=== PATIENT | male | born 1985 | race African-American/Black ===

== ENCOUNTER 2020-02-07 22:58 | Emergency (ER) | payer OTHER ==
[~2020-02-07] VITALS: Ht 188 cm; Wt 81.7 kg
[2020-02-07 23:45] LABS: ABSOLUTE NEUTROPHILS 3.4 thou/uL (1.4-8.2); BASOPHILS 0.6 % (0.0-2.0); EOSINOPHILS 1.1 % (0.0-3.0); HEMATOCRIT 48.3 % (42.0-52.0); LYMPHOCYTES 42.6 % (24.0-44.0); MCH 33.3 pg (26.0-34.0); MCHC 35.1 g/dL (28.0-37.0); MCV 94.9 fL (80.0-100.0); MONOCYTES 9.9 % (1.0-8.0); PLATELET COUNT 377 thou/uL (150-400); POLYS 45.8 % (36.0-66.0); RBC 5.09 mil/uL (4.50-6.00); RDW 13.7 % (10.5-14.5); WBC 7.4 thou/uL (4.0-11.0)
[2020-02-07 23:51] LABS: ANION GAP 11 mmol/L (7-16); BUN 20 mg/dL (7-18); CALCIUM 9.1 mg/dL (8.5-10.1); CHLORIDE 100 mmol/L (98-107); CO2 25 mmol/L (21-32); CREATININE 1.6 mg/dL (0.7-1.3); GLUCOSE 121 mg/dL (74-106); SODIUM 136 mmol/L (136-145)
[2020-02-07 23:56] LABS: ALBUMIN 4.4 g/dL (3.4-5.0); SALICYLATE 5.5 mg/dL (2.8-20.0); SGOT 33 U/L (15-37); SGPT 24 U/L (30-65); TOTAL BILIRUBIN 1.1 mg/dL (0.2-1.0); TOTAL PROTEIN 7.9 g/dL (6.4-8.2)
[2020-02-08 01:52] LABS: URINE BILIRUBIN 2+ (Negative); URINE BLOOD NEGATIVE (Negative); URINE CLARITY CLEAR; URINE COLOR YELLOW; URINE GLUCOSE-RANDOM* NEGATIVE (Negative); URINE KETONES 1+ (Negative); URINE LEUKOCYTES-REFLEX NEGATIVE (Negative); URINE NITRITE-REFLEX NEGATIVE (Negative); URINE PROTEIN (DIPSTICK) 1+ (Negative); URINE SPECIFIC GRAVITY 1.025 (1.005-1.035)
[2020-02-08 01:55] LABS: ICTOTEST (BILI CONFIRMATORY) Positive (Negative)
[2020-02-08 01:57] LABS: BACTERIA-REFLEX None Seen /HPF (None Seen); CASTS None Seen /LPF (None Seen); CRYSTALS None Seen /LPF (None Seen); MUCUS 0-3 Light strn/LPF (None Seen); SQUAMOUS None Seen /LPF (0-3); URINE RBC None Seen /HPF (0-2); URINE WBC-REFLEX None Seen /HPF (0-5)
[2020-02-08 02:01] LABS: AMP/METHAMP POSITIVE (Negative); BARBITURATES Negative (Negative); BENZODIAZEPINES Negative (Negative); COCAINE POSITIVE (Negative); METHADONE Negative (Negative); OPIATES Negative (Negative); PCP Negative (Negative)
--- NOTE | 2020-02-08 09:06 | EKG ---
[facility] [place] [address] [address] ELECTROCARDIOGRAM REPORT Name: LAQUITASTERLING Room #: REG [facility]#: [id number] Admission: 02/07/20 Attend Phys: Discharge: Date of : 85 Report #: [id number] THIS REPORT FOR: cc: NO FAMILY PHYSICIAN or PCP NO FAMILY PHYSICIAN or PCP Matthew Maya MD [facility] ~ THIS REPORT FOR: //name// [facility] ED Test Date: 2020-02-07 Test Time: 23:39:46 Pat Name: STERLING COELHO Department: Room: Gender: M [employer]: MPARK : 1985 Requested By: Allan Deras Order Number: [id number] MD: Matthew Maya Measurements Intervals [place] Rate: 73 P: 53 MI: 149 QRS: 36 QRSD: 97 T: 33 QT: 386 QTc: 426 Interpretive Statements Sinus rhythm Normal tracing No previous ECG available for comparison Electronically Signed On 02-08-2020 9:04:55 CDT by Matthew Maya [email or web address] <ELECTRONICALLY SIGNED> By: Matthew Maya MD, FAC 02/08/20 0904 [id number] Matthew Maya MD, FACC /EPI
[2020-02-09 12:12] VITALS: BP 112/76
== END 2020-02-09 12:12 | disposition home or self-care (01) ==
LOC: ER 22:58
PROVIDERS: Emergency Medicine
DX: F22 Delusional disorders (principal); R45.850 Homicidal ideations; F29 Unspecified psychosis not due to a substance or known physiological condition